=== PATIENT | female | born 1965 | race Caucasian/White ===

== ENCOUNTER → 2024-06-07 09:56 | Outpatient (REF) | payer OTHER, SELFPAY ==
[2024-06-08 16:26] LABS: Mumps Virus IgG Positive; Rubeola (Measles) IgG Positive; Varicella Zoster IgG (VZV) Positive
[2024-06-08 18:46] LABS: Hepatitis B Surface Antibody Negative
[2024-06-08 19:45] LABS: Rubella Positive
[2024-06-09 08:15] LABS: Quantiferon Mitogen minus NIL 9.99 IU/mL; Quantiferon NIL 0.01 IU/mL; Quantiferon Plus TB1 minus NIL 0.01 IU/mL (<=0.34); Quantiferon TB Gold Plus Negative (Negative)
== END ==
LOC: OHS 09:56
PROVIDERS: ATTENDING PHYSICIAN Nurse Practitioner Family
DX: Z23 Encounter for immunization (principal)
CPT/HCPCS: 36415; 86480; 86706; 86735; 86762; 86765; 86787

== ENCOUNTER → 2024-09-26 15:23 | Outpatient (REF) | payer OTHER, SELFPAY ==
[2024-09-26 19:59] LABS: Hepatitis B Surface Antibody Positive
== END ==
LOC: OHS 15:23
PROVIDERS: ATTENDING PHYSICIAN Nurse Practitioner Family
DX: Z23 Encounter for immunization (principal)
CPT/HCPCS: 36415; 86706